=== PATIENT | female | born 1965 | race Caucasian/White ===

== ENCOUNTER 2018-08-17 20:10 | Emergency (ER) | payer OTHER ==
--- NOTE | 2018-08-17 20:17 | ER Report ---
History and Physical Time Seen By MD: 20:17 HPI/ROS CHIEF COMPLAINT: Bright red blood per rectum HISTORY OF PRESENT ILLNESS: Patient is a 53-year-old female here with complaints of bright red blood per rectum isolated episode shortly prior to arrival. Patient reports having bright red blood streaking her stools which were loose. Denies prior history of GI bleed, denies prior history of diverticulitis. She has had an appendectomy in the remote past. Denies prior history of a colonoscopy. Patient is well-appearing at time of evaluation, hemodynamically stable, afebrile, denies abdominal pain, nausea, vomiting. Patient reports that she is currently on her menses. REVIEW OF SYSTEMS: Constitutional: No fever, no chills. Eyes: No discharge. ENT: No sore throat. Cardiovascular: No chest pain, no palpitations. Respiratory: No cough, no shortness of breath. Gastrointestinal: Bright red blood per rectum, denies nausea, vomiting Genitourinary: No hematuria. Musculoskeletal: No back pain. Skin: No rashes. Neurological: No headache. Allergies: Coded Allergies: Sulfa (Sulfonamide Antibiotics) (Verified Allergy, Unknown, 08/17/18) Home Meds Active Scripts Metronidazole (FLAGYL) 500 Mg Tablet, 500 MG PO TID for 7 Days, #21 TAB Prov:CHARLOTTE WHYTE DO 08/17/18 Ciprofloxacin Hcl 500 Mg Tab (CIPRO 500 MG TAB) 500 Mg Tablet, 500 MG PO BID for 7 Days, #14 TAB Prov:CHARLOTTE WHYTE DO 08/17/18 Constitutional Vital Sign - Last 24 Hours 08/17/18 20:17 Temp 97.9 Pulse 97 Resp 16 B/P (MAP) 192/114 Pulse Ox 92 O2 Delivery Room Air Physical Exam General Appearance: The patient is alert, has no immediate need for airway protection and no signs of toxicity. Anxious appearing Eyes: Pupils equal and round no pallor or injection. ENT, Mouth: Mucous membranes are moist. Respiratory: There are no retractions, lungs are clear to auscultation. Cardiovascular: Regular rate and rhythm. Gastrointestinal: Abdomen is soft and non tender, no masses, bowel sounds normal. Neurological: No focal neurological deficits Skin: Warm and dry, no rashes. Musculoskeletal: Neck is supple non tender. Extremities are nontender, nonswollen and have full range of motion. DIFFERENTIAL DIAGNOSIS: After history and physical exam differential diagnosis was considered forlower GI bleeding including but not limited to diverticulosis, tumor, AVM, hemorrhoid and anal fissure. Medical Decision Making Data Points Result Diagram: 08/17/18204708/17/182047 Laboratory Hematology Test 08/17/18 20:26 08/17/18 20:48 Stool Occult Blood (IFOB) Positive (NEGATIVE) Red Blood Count 5.09 M/uL (4.17-5.56) Mean Corpuscular Volume 84.9 fL (80.0-96.0) Mean Corpuscular Hemoglobin 28.7 pg (26.0-33.0) Mean Corpuscular Hemoglobin Concent 33.8 g/dL (32.0-36.0) Red Cell Distribution Width 14.3 % (11.5-14.5) Mean Platelet Volume 8.5 fL (7.2-11.1) Neutrophils (%) (Auto) 58.8 % (39.4-72.5) Lymphocytes (%) (Auto) 30.4 % (17.6-49.6) Monocytes (%) (Auto) 8.4 % (4.1-12.4) Eosinophils (%) (Auto) 1.8 % (0.4-6.7) Basophils (%) (Auto) 0.6 % (0.3-1.4) Nucleated RBC Relative Count (auto) 0.0 /100WBC Neutrophils # (Auto) 5.7 K/uL (2.0-7.4) Lymphocytes # (Auto) 3.0 K/uL (1.3-3.6) Monocytes # (Auto) 0.8 K/uL (0.3-1.0) Eosinophils # (Auto) 0.2 K/uL (0.0-0.5) Basophils # (Auto) 0.1 K/uL (0.0-0.1) Nucleated RBC Absolute Count (auto) 0.00 K/uL Prothrombin Time 13.1 seconds (12.0-14.4) Prothromb Time International Ratio 0.99 Activated Partial Thromboplast Time 27 seconds (23-35) Sodium Level 143 mmol/L (137-145) Potassium Level 4.2 mmol/L (3.5-5.0) Chloride Level 109 mmol/L (98-107) Carbon Dioxide Level 22 mmol/L (22-31) Blood Urea Nitrogen 24 mg/dl (7-18) Creatinine 0.90 mg/dl (0.52-1.04) Glomerular Filtration Rate Calc > 60.0 Random Glucose 108 mg/dl (75-110) Lactate 1.2 mmol/L (0.7-2.1) Calcium Level 9.1 mg/dl (8.4-10.2) Total Bilirubin 0.4 mg/dl (0.2-1.3) Aspartate Amino Transf (AST/SGOT) 23 U/L (0-35) Alanine Aminotransferase (ALT/SGPT) 38 U/L (0-56) Alkaline Phosphatase 59 U/L (0-126) Total Protein 6.6 g/dl (6.3-8.2) Albumin 4.0 g/dl (3.5-5.0) Lipase 245 U/L (23-300) Chemistry Test 08/17/18 20:26 08/17/18 20:48 Stool Occult Blood (IFOB) Positive (NEGATIVE) White Blood Count 9.7 k/uL (4.5-11.0) Red Blood Count 5.09 M/uL (4.17-5.56) Hemoglobin 14.6 g/dL (12.0-16.0) Hematocrit 43.2 % (34.0-47.0) Mean Corpuscular Volume 84.9 fL (80.0-96.0) Mean Corpuscular Hemoglobin 28.7 pg (26.0-33.0) Mean Corpuscular Hemoglobin Concent 33.8 g/dL (32.0-36.0) Red Cell Distribution Width 14.3 % (11.5-14.5) Platelet Count 234 K/uL (150-450) Mean Platelet Volume 8.5 fL (7.2-11.1) Neutrophils (%) (Auto) 58.8 % (39.4-72.5) Lymphocytes (%) (Auto) 30.4 % (17.6-49.6) Monocytes (%) (Auto) 8.4 % (4.1-12.4) Eosinophils (%) (Auto) 1.8 % (0.4-6.7) Basophils (%) (Auto) 0.6 % (0.3-1.4) Nucleated RBC Relative Count (auto) 0.0 /100WBC Neutrophils # (Auto) 5.7 K/uL (2.0-7.4) Lymphocytes # (Auto) 3.0 K/uL (1.3-3.6) Monocytes # (Auto) 0.8 K/uL (0.3-1.0) Eosinophils # (Auto) 0.2 K/uL (0.0-0.5) Basophils # (Auto) 0.1 K/uL (0.0-0.1) Nucleated RBC Absolute Count (auto) 0.00 K/uL Prothrombin Time 13.1 seconds (12.0-14.4) Prothromb Time International Ratio 0.99 Activated Partial Thromboplast Time 27 seconds (23-35) Glomerular Filtration Rate Calc > 60.0 Lactate 1.2 mmol/L (0.7-2.1) Calcium Level 9.1 mg/dl (8.4-10.2) Total Bilirubin 0.4 mg/dl (0.2-1.3) Aspartate Amino Transf (AST/SGOT) 23 U/L (0-35) Alanine Aminotransferase (ALT/SGPT) 38 U/L (0-56) Alkaline Phosphatase 59 U/L (0-126) Total Protein 6.6 g/dl (6.3-8.2) Albumin 4.0 g/dl (3.5-5.0) Lipase 245 U/L (23-300) Coagulation Test 08/17/18 20:48 Prothrombin Time 13.1 seconds Prothromb Time International Ratio 0.99 Activated Partial Thromboplast Time 27 seconds EKG/Imaging Imaging PATIENT NAME: Macie Densi : 1965 MR: [id number] V: [id number] EXAM DATE: ORDERING PHYSICIAN: CHARLOTTE WHYTE TECHNOLOGIST: Location: [facility] - [place] Patient: Macie Denis : 1965 Visit/Account:[id number] Date of Sevice: 08/17/2018 CT ABDOMEN PELVIS W/ CON HISTORY: GI bleed TECHNIQUE: Axial images were obtained through the abdomen and pelvis with i ntravenous contrast . One of the following dose optimization techniques was utilized in the performance of this exam: automated exposure control; adjustment of the mA and/or kv according to patient size; or use of iterative reconstruction technique. Specific details can be referenced in the facility's radiology CT exam operational policy. CONTRAST: 75 cc of Isovue-370 COMPARISON: None. FINDINGS: Visualized lung bases: Negative. Hepatobiliary: Negative. Spleen: Negative. Adrenals: Negative. Pancreas: Negative. Kidneys/ureters/bladder: Negative. Bowel/peritoneum/mesentery: Colonic diverticulosis with short segment thickening with mild inflammatory change at the distal descending colon. No bowel obstruction, free air or ascites. Vessels: Negative. Lymph nodes: Negative. Pelvic genitourinary: Uterus is mildly enlarged. Bones/body wall: Negative. Other findings: None significant IMPRESSION: 1. Background of colonic diverticulosis with short segment thickening of the d escending colon with mild adjacent inflammatory change. Differential includes diverticulitis, segmental colitis or neoplasm. Recommend colonoscopy if not performed in the appropriate screening.. ED Course/Re-evaluation ED Course Patient is a 53-year-old female here with complaints of bright red blood per rectum. Patient reports that this is her 1st isolated episode, she noticed this shortly prior to arrival. Denies prior history of diverticulitis, colonoscopy, other GI bleed. Patient does have a history of an appendectomy in the remote past. Denies being on anticoagulants. She does report taking Advil periodically. Patient is hemodynamically stable at time of evaluation. Hemoglobin and hematocrit were stable. CT imaging showed possible diverticulitis, segmental colitis or neoplasm. Patient was started on Cipro, Flagyl for antimicrobial coverage. I discussed the patient with Dr. Amezquita prior to discharge as the patient will likely need a colonoscopy soon to rule out neoplasm. Patient was Hemoccult positive. Bright red blood was identified at the rectal vault. Patient was advised to take Cipro and Flagyl. Patient was discussed with Dr. Amezquita who agreed with outpatient follow-up. Decision to Disposition Date: Aug 17, 2018 Decision to Disposition Time: 22:32 Depart Departure Latest Vital Signs Vital Signs Date Time Temp Pulse Resp B/P (MAP) Pulse Ox O2 Delivery O2 Flow Rate FiO2 08/17/18 20:17 97.9 97 16 192/114 92 Room Air Impression: Primary Impression: GI bleed Condition: Improved Disposition: HOME OR SELF-CARE Referrals: BECKIE AMEZQUITA [place] Metronidazole (FLAGYL) 500 Mg Tablet 500 MG PO TID for 7 Days, #21 TAB Prov: CHARLOTTE WHYTE DO 08/17/18 Ciprofloxacin Hcl 500 Mg Tab (CIPRO 500 MG TAB) 500 Mg Tablet 500 MG PO BID for 7 Days, #14 TAB Prov: WHYTECHARLOTTE S 08/17/18 Patient Instructions: Gastrointestinal Bleeding (DC) Additional Instructions: Please drink plenty of water. You will likely need a colonoscopy moving forward to rule out other causes of gastrointestinal bleeding. I discussed your case with Dr. Amezquita with general surgery. Please take ciprofloxacin 500 mg twice daily, Flagyl 500 mg 3 times daily for 7 days. Please return immediately if he developed increased gastrointestinal bleeding, lightheadedness, shortness of breath, abdominal pain, nausea, vomiting, fevers or chills. Please avoid all blood thinning agents including aspirin, Advil, ibuprofen, naproxen, Aleve or other related NSAIDs. CHARLOTTE WHYTE DO Aug 17, 2018 20:17
[2018-08-17] MEDS ORDERED: NS(*) 0.9% 1000 ML BAG 1,000 ML IV ONE (20:18)
[2018-08-17] MEDS ORDERED: PANTOPRAZOLE SOD 40 MG IV VIAL IVP ONE (20:20)
[2018-08-17] MEDS ORDERED: ONDANSETRON 4 MG/2 ML VIAL IVP ONE (20:20)
[2018-08-17 20:57] LABS: PLATELET COUNT, AUTOMATED 234 K/uL (150-450)
[2018-08-17] MEDS ORDERED: IOPAMIDOL 76% 100 ML INFUS BTL 100 ML ONE (21:07)
[2018-08-17 21:13] LABS: INR 0.99
[2018-08-17 21:38] VITALS: BP 156/91
--- NOTE | 2018-08-17 21:59 | RADIOLOGY IMAGING REPORT ---
FACILITY: [facility] [place] PATIENT NAME: Macie Denis : 1965 MR: [id number] V: [id number] EXAM DATE: ORDERING PHYSICIAN: CHARLOTTE WHYTE TECHNOLOGIST: Location: [facility] - [place] Patient: Macie Denis : 1965 Visit/Account:[id number] Date of Sevice: 08/17/2018 CT ABDOMEN PELVIS W/ CON HISTORY: GI bleed TECHNIQUE: Axial images were obtained through the abdomen and pelvis with intravenous contrast . One of the following dose optimization techniques was utilized in the performance of this exam: automate d exposure control; adjustment of the mA and/or kv according to patient size; or use of iterative rec onstruction technique. Specific details can be referenced in the facility's radiology CT exam operati onal policy. CONTRAST: 75 cc of Isovue-370 COMPARISON: None. FINDINGS: Visualized lung bases: Negative. Hepatobiliary: Negative. Spleen: Negative. Adrenals: Negative. Pancreas: Negative. Kidneys/ureters/bladder: Negative. Bowel/peritoneum/mesentery: Colonic diverticulosis with short segment thickening with mild inflammat ory change at the distal descending colon. No bowel obstruction, free air or ascites. Vessels: Negative. Lymph nodes: Negative. Pelvic genitourinary: Uterus is mildly enlarged. Bones/body wall: Negative. Other findings: None significant IMPRESSION: 1. Background of colonic diverticulosis with short segment thickening of the descending colon with mi ld adjacent inflammatory change. Differential includes diverticulitis, segmental colitis or neoplasm. Recommend colonoscopy if not performed in the appropriate screening.. Report Dictated By: George Zarate MD at 08/17/2018 9:44 PM Report E-Signed By: George Zarate MD at 08/17/2018 9:56 PM WSN:[id number]
[2018-08-17] MEDS ORDERED: METRONIDAZOLE 500 MG TABLET PO ONE (22:25)
[2018-08-17] MEDS ORDERED: CIPROFLOXACIN 500 MG TAB PO ONE (22:25)
[2018-08-17] MEDS ORDERED: METR-1 PO (22:28)
[2018-08-17] MEDS ORDERED: CIPR-344 PO (22:28)
== END 2018-08-17 23:01 | disposition home or self-care (01) ==
LOC: ER 20:31
DX: K92.2 Gastrointestinal hemorrhage, unspecified (principal)
CPT/HCPCS: 74177; 82274; 83605; 83690; 85025; 85610; 85730; 86850; 86900; 86901; 96361; 96374; 99284; C9113; J7030; Q9967; 82040; 82247; 82310; 82374; 82435; 82565; 82947; 84075; 84132; 84155; 84295; 84450; 84460; 84520

== ENCOUNTER → 2018-10-21 | Day surgery (SDC) | payer OTHER ==
[~2018-10-21] VITALS: Ht 167.6 cm; Wt 112.5 kg
[~2018-10-21] MED LIST: APAP/HYDROCODONE 325/5 TAB PO PRN; CIPR-344 PO; DEXAMETHASONE SOD 4 MG/ML VIAL ONE; FAMOTIDINE 20 MG TAB PO ONE; IBUPROFEN 800 MG TAB PO SCH; KETAMINE HCL 200 MG/20 ML MDV ONE; KETOROLAC 30 MG/ML VIAL ONE; LIDOCAINE MPF 1% 5 ML VIAL ONE; LIDOCAINE/SOD BICARB 8.4% SYR ID ONE; LOR5/325 PO; LR(*) 1000 ML BAG 1,000 ML IV ONE; MEDR10TA57 PO; METOCLOPRAMIDE 10 MG/2 ML SDV IVP PRN; METR-1 PO; MIDAZOLAM 2 MG/2 ML VIAL IVP PRN; NORMOSOL R SOLN(*) 1000 ML BAG 1,000 ML IV PRN; ONDANSETRON 4 MG/2 ML VIAL ONE; PROPOFOL EMUL(*) 10MG/ML 20 ML 20 ML ONE; ceFAZolin(*) 2GM/D5W 50ML 50 ML IVPB ONE; fentaNYL CITR 100 MCG/2 ML AMP ONE
[2018-10-21 06:00] VITALS: BP 175/102
[2018-10-21 06:51] LABS: PLATELET COUNT, AUTOMATED 244 K/uL (150-450)
--- NOTE | 2018-10-21 08:08 | Post Operative Note ---
Operative Note - POWER PRESS OPERATOR Operative Day Date: Oct 21, 2018 Time: 08:04 Physicians Surgeon: Deandra Anesthesia: GETAPetra Diagnosis Pre-Op Diagnosis: Menorrhagia Post-Op Diagnosis: Same Procedure Findings: Normal endometrial cavity Procedure(s): Dx hscope NovaSure ablation Specimen Removed:(Maybe N/A): None Fluids Fluids: UOP: 150cc Estimated Blood Loss: Minimal NATALYA GUNTER MD Oct 21, 2018 08:08
--- NOTE | 2018-10-21 08:13 | Short(Outpt) Discharge Summary ---
Discharge Summary Reason for Hosp/Final Diag: (1) Status post endometrial ablation Departure Discharge to: Home, Self Care Discharge Instructions Home Meds Active Scripts Hydrocodone Bit/Acetaminophen (HYDROCODON-ACETAMINOPHEN 5-325) 1 Each Tablet, 1 EACH PO Q6H PRN for pain, #10 TAB 0 Refills Prov:NATALYA GUNTER MD 10/21/18 Medroxyprogesterone Acetate (PROVERA) 10 Mg Tablet, 10 MG PO DAILY, #3 TAB 0 Refills Prov:NATALYA GUNTER MD 10/18/18 Follow up Referrals: FABRICATION TECHNICIAN - [place] We[place] @ [facility] with NATALYA GUNTER MD Diet: Regular Activity: As Tolerated Special Instructions: May lift normally, may shower and bath normally, pelvic rest for 2 weeks, may take NSAID at home NATALYA GUNTER MD Oct 21, 2018 08:13
[2018-10-21 09:23] VITALS: BP 174/96
[2018-10-21 09:30] VITALS: BP 156/86
[2018-10-21 10:04] VITALS: BP 155/92
--- NOTE | 2018-10-21 10:09 | OPERATIVE REPORT 1 ---
EVENT DATE: October 21, 2018 SURGEON: Johnnie Amezquita MD ANESTHESIOLOGIST: Clinton Lambert MD ANESTHESIA: General. OUTSIDE BARREL LATHE OPERATOR: None. PREOPERATIVE DIAGNOSIS Colitis and blood per rectum. POSTOPERATIVE DIAGNOSES 1. Colitis and blood per rectum. 2. Diverticulosis. PROCEDURE PERFORMED Colonoscopy. FLUIDS IV crystalloid. ESTIMATED BLOOD LOSS None. SPECIMENS None. COMPLICATIONS None. INDICATIONS This is a 53-year old female who had an episode of large amount of bright red blood per rectum. She was also found to have colitis on CT scan. She has not had a colonoscopy in the past. Risks and benefits of the procedure were explained and consent was signed. DESCRIPTION OF PROCEDURE Patient was taken to the operating room and placed in the supine position. General anesthesia was administered per the Anesthesia team. The patient was then placed in stirrups. A gynecologic procedure was performed and completed and then I performed the colonoscopy. Digital rectal exam and perianal exam were unremarkable. The colonoscope was then advanced through the anus into the cecum under direct visualization. The cecum was identified by the appendiceal orifice and the ileocecal valve. The scope was then slowly withdrawn. There were no masses and no polyps. The prep was adequate to identify polyps greater than 6 mm. In the descending colon, sigmoid colon, there were multiple small diverticula. These were more abundant in the sigmoid colon that the descending colon. There were no significant internal hemorrhoids. Carbon dioxide was suctioned prior to withdrawing the scope. The patient tolerated the procedure well. There were no complications. [facility]
[2018-10-21 10:18] VITALS: BP 145/93
[2018-10-21 10:21] VITALS: BP 151/91
--- NOTE | 2018-10-21 10:59 | OPERATIVE REPORT 1 ---
EVENT DATE: October 21, 2018 SURGEON: Zarina Liriano MD ANESTHESIOLOGIST: Clinton Lambert MD ANESTHESIA: General endotracheal. PREOPERATIVE DIAGNOSIS Menorrhagia. POSTOPERATIVE DIAGNOSIS Menorrhagia. FINDINGS Normal endometrial cavity. PROCEDURE PERFORMED 1. Diagnostic hysteroscopy. 2. NovaSure endometrial ablation. 3. Colonoscopy as per Dr. Amezquita. SPECIMENS REMOVED None. URINE OUTPUT 150 cc. ESTIMATED BLOOD LOSS Minimal. NOVASURE DEVICE SETTINGS 5.5 cm length,, 2.6 cm width, 1 minute 35 second ablation time, 250 cc saline used with 120 cc deficit. INDICATIONS This patient is a 53-year old 2, para 1-1-0-2 who presented to clinic with complaints of heavy perimenopausal bleeding. This patient describes her bleeding a debilitating A Pap Smear and endometrial biopsy were performed and both benign. A TSH was within normal limits. An ultrasound did not reveal anatomical concern. She was consented for either progesterone IUD versus endometrial ablation due to her history of elevated blood pressure. She elected to proceed with an endometrial ablation. Please see the history and physical for full details. DESCRIPTION OF PROCEDURE The patient was properly identified and taken to the operating room. She was placed in a dorsal lithotomy position and prepped and draped in the usual fashion for a vaginal procedure. Speculum was then placed to visualize the cervix, which was multiparous and without lesion. The anterior lip was grasped with a tenaculum. The cervix was then serially dilated to 7 mm without difficulty. A hysteroscope was assembled, primed and prepared. The hysteroscope was then introduced under direct visualization into the endometrial cavity. The endometrial cavity appeared within normal limits without any obvious lesion. Bilateral tubal ostia were noted and appeared to be normal. At this time, the hysteroscope was removed and placed aside. The NovaSure endometrial device was then prepared. The endometrial cavity was measured to be 5.5 cm. The NovaSure device was introduced to the fundus and the array was deployed. After cavity assessment was performed and passed, the radiofrequency device was enabled, did calculate 79 vo and the total ablation time was 1 minute 35 seconds. At the end of this, the device was retracted and removed without difficulty. A second pass with the hysteroscope was then performed and endometrial cavity had an adequate ablation. The hysteroscope was then removed as was the tenaculum and the speculum. There was no bleeding at this time. The patient tolerated the procedure well. She then was prepped for the colonoscopy, where Dr. Amezquita took over the procedure. JUAN
== END ==
LOC: OR 00:26
PROVIDERS: ATTEND Surgery
DX: K57.30 Diverticulosis of large intestine without perforation or abscess without bleeding (principal); N92.0 Excessive and frequent menstruation with regular cycle
CPT/HCPCS: 00811; 45378; 58563; 84703; 85025; J1100; J1885; J2001; J2250; J2405; J2704; J3010; J3490; J0690